=== PATIENT | male | born 1955 | race Caucasian/White ===

== ENCOUNTER 2019-10-06 10:38 | Emergency (ER) | payer OTHER ==
[~2019-10-06] VITALS: Ht 188 cm; Wt 102.1 kg
[~2019-10-06 10:38] MED LIST: ALLO300 PO; AMLO10 PO; ASPI325 PO; ASPI81CH PO; ASPI81EC PO; Aspir 8181 MG PO; CALCITRATE200 MG PO; CARV25 PO; CARV6.25 PO; CHLO25B PO; CLOBET30L TOP; CLON1 PO; CLON2 PO; CODACE30 PO; CYCL10 PO; DOXA4 PO; ERYT.5TO RIGHTEYE; ESZO3 PO; FERSU300 PO; FISH OIL 1,0001 EAC2 PO; FURO40 PO; GABA300 PO; HYDACE10B PO; HYDCHL25 PO; HYDMOR2 PO; Hydrocodone-Ap1 EA20 PO; IBUP800 PO; INDO25 PO; Keflex500 MG PO; LAMO100 PO; LAMO25 PO; LIDO5TO TOP; LIDO700A20 TOP; LISI20 PO; MAGNESIUM OXID500 MG PO; MELA3 PO; Miralax17 GM PO; NAPR250 PO; POTASSIUM PO; POTCHL20ER PO; PRAZ2 PO; PREG75 PO; PSYSENPA PO; PYRI100 PO; Percocet 5-3251 EACH PO; Prednisone20 MG PO; Prinivil10 MG PO; QUET300 PO; RXCYCL10 PO; RXHYDMOR2 PO; Ropinirole HCl1 MG PO; SILD50TA PO; SPIR25 PO; TAMS.4ER PO; TEMA30 PO; TRAM50 PO; TRAZ100 PO; Ultra Mide 25120 ML TOP; VITAMIN B-1100 MG PO; Vitamin D400 UNI2 PO
[2019-10-06 12:14] LABS: BASOPHILS ABSOLUTE AUTO 0.03 K/mm3 (0.00-0.23); BASOPHILS PERCENT AUTO 0 % (0-2); EOSINOPHILS ABSOLUTE AUTO 0.12 K/mm3 (0.00-0.68); EOSINOPHILS PERCENT AUTO 2 % (0-6); Hematocrit 44.1 % (37.0-53.0); Hemoglobin 14.6 g/dL (13.5-17.5); IMMATURE GRAN ABSOLUTE AUTO 0.01 K/mm3 (0.00-0.10); IMMATURE GRAN PERCENT AUTO 0 % (0-1); LYMPHOCYTES PERCENT AUTO 21 % (21-46); MONOCYTES ABSOLUTE AUTO 0.71 K/mm3 (0.16-1.47); MONOCYTES PERCENT AUTO 11 % (4-13); Mean Corpuscular HGB Conc 33.1 g/dL (31.5-36.5); Mean Corpuscular Volume 85 fL (80-100); NEUTROPHILS ABSOLUTE AUTO 4.41 K/mm3 (1.96-9.15); NEUTROPHILS PERCENT AUTO 66 % (41-73); Platelet Count 262 K/mm3 (150-400); RDW Coefficient Variation 12.6 % (11.7-14.2); RDW Standard Deviation 38.6 fL (35.1-46.3); Red Blood Cell Count 5.22 M/mm3 (4.30-5.90); White Blood Cell Count 6.68 K/mm3 (4.00-11.30)
[2019-10-06 12:32] LABS: Alanine Aminotransfer (ALT/SGP 28 U/L (12-78); Albumin, Blood 4.1 g/dL (3.4-5.0); Alk Phos 104 U/L (50-136); Anion Gap 5 mmol/L (6-16); Aspartate Aminotrans (AST/SGOT 17 U/L (12-37); Bilirubin, Total 0.5 mg/dL (0.1-1.0); Blood Urea Nitrogen 12 mg/dL (8-24); Bun/Creatinine Ratio 15.1 (12.0-20.0); CO2, Blood 28 mmol/L (21-32); Calcium, Blood 9.8 mg/dL (8.5-10.1); Chloride, Blood 110 mmol/L (98-108); Globulin, Blood 4.1 g/dL (2.2-4.0); Glomerular Filtration Rate >60 (60-); Glucose, Blood 99 mg/dL (70-99); Potassium, Blood 3.4 mmol/L (3.5-5.5); Sodium, Blood 143 mmol/L (136-145); Total Protein, Blood 8.2 g/dL (6.4-8.2)
[2019-10-06 12:38] LABS: Source, Urine Clean Catch
[2019-10-06 12:41] LABS: Bilirubin, Urine Neg (Neg); Blood, Urine 5+ (Neg); Glucose Qualitative, Urine Neg (Neg); Ketones, Urine Neg (Neg); Leukocyte Esterase, Urine 1+ (Neg); Nitrite, Urine Neg (Neg); Protein, Urine 2+ (Neg); Urobilinogen, Urine NORM (Normal)
[2019-10-06 12:55] LABS: Appearance, Urine Turbid (Clear); Bacteria Few /hpf; Color, Urine Brown (P-Yellow); Red Blood Cells, Urine TNTC /hpf (0-2); Squamous Epithelial Cells Not Seen /hpf (Few)
[2019-10-06] MEDS ORDERED: Bactrim Ds Tab1 EACH PO (14:08)
== END 2019-10-06 14:18 | disposition home or self-care (01) ==
LOC: ER 10:38
PROVIDERS: Emergency Medicine
DX: N39.0 Urinary tract infection, site not specified (principal); R31.0 Gross hematuria; I50.9 Heart failure, unspecified; Z87.891 Personal history of nicotine dependence; Z79.899 Other long term (current) drug therapy
CPT/HCPCS: 36415; 80053; 81001; 85025; 87086; 96374; 96375; 99283-25; J1100; J1170; J2405

== ENCOUNTER 2019-10-13 11:56 | Emergency (ER) | payer OTHER ==
[~2019-10-13] VITALS: Ht 188 cm; Wt 104.3 kg
[~2019-10-13 11:56] MED LIST changes: +Bactrim Ds Tab1 EACH PO
[2019-10-13 13:08] LABS: BASOPHILS ABSOLUTE AUTO 0.03 K/mm3 (0.00-0.23); BASOPHILS PERCENT AUTO 1 % (0-2); EOSINOPHILS ABSOLUTE AUTO 0.14 K/mm3 (0.00-0.68); EOSINOPHILS PERCENT AUTO 3 % (0-6); Hematocrit 39.9 % (37.0-53.0); Hemoglobin 13.1 g/dL (13.5-17.5); IMMATURE GRAN PERCENT AUTO 0 % (0-1); LYMPHOCYTES ABSOLUTE AUTO 1.93 K/mm3 (0.84-5.20); LYMPHOCYTES PERCENT AUTO 37 % (21-46); MONOCYTES ABSOLUTE AUTO 0.72 K/mm3 (0.16-1.47); MONOCYTES PERCENT AUTO 14 % (4-13); Mean Corpuscular HGB 27.8 pg (26.0-34.0); Mean Corpuscular HGB Conc 32.8 g/dL (31.5-36.5); Mean Corpuscular Volume 85 fL (80-100); Mean Platelet Volume 8.9 fL (9.1-12.4); NEUTROPHILS ABSOLUTE AUTO 2.45 K/mm3 (1.96-9.15); NEUTROPHILS PERCENT AUTO 46 % (41-73); Platelet Count 270 K/mm3 (150-400); RDW Coefficient Variation 13.1 % (11.7-14.2); RDW Standard Deviation 40.5 fL (35.1-46.3); Red Blood Cell Count 4.72 M/mm3 (4.30-5.90); White Blood Cell Count 5.27 K/mm3 (4.00-11.30)
[2019-10-13 13:31] LABS: Alanine Aminotransfer (ALT/SGP 24 U/L (12-78); Albumin, Blood 3.8 g/dL (3.4-5.0); Albumin/Globulin Ratio 1.2 (0.8-1.8); Alk Phos 87 U/L (50-136); Anion Gap 7 mmol/L (6-16); Aspartate Aminotrans (AST/SGOT 11 U/L (12-37); Bilirubin, Total 0.5 mg/dL (0.1-1.0); Blood Urea Nitrogen 18 mg/dL (8-24); Bun/Creatinine Ratio 17.5 (12.0-20.0); CO2, Blood 27 mmol/L (21-32); Calcium, Blood 9.2 mg/dL (8.5-10.1); Chloride, Blood 107 mmol/L (98-108); Creatinine, Blood 1.03 mg/dL (0.60-1.20); Globulin, Blood 3.3 g/dL (2.2-4.0); Glomerular Filtration Rate >60 (60-); Glucose, Blood 106 mg/dL (70-99); Potassium, Blood 3.4 mmol/L (3.5-5.5); Sodium, Blood 141 mmol/L (136-145); Total Protein, Blood 7.1 g/dL (6.4-8.2)
[2019-10-13] MEDS ORDERED: Percocet 5-3251 EACH PO (14:48)
[2019-10-13 16:29] LABS: Source, Urine Clean Catch
[2019-10-13 16:43] LABS: Bilirubin, Urine Neg (Neg); Blood, Urine 5+ (Neg); Glucose Qualitative, Urine Neg (Neg); Ketones, Urine Neg (Neg); Leukocyte Esterase, Urine Neg (Neg); Nitrite, Urine Neg (Neg); Protein, Urine Neg (Neg); Urobilinogen, Urine NORM (Normal)
[2019-10-13 16:53] LABS: Appearance, Urine Clear (Clear); Color, Urine Yellow (P-Yellow)
[2019-10-13 16:55] LABS: Hyaline Casts 0-2 /lpf (0-2); Red Blood Cells, Urine TNTC /hpf (0-2); White Blood Cells, Urine 0-2 /hpf (0-5)
[2019-10-13 16:56] LABS: Bacteria Few /hpf; Squamous Epithelial Cells Not Seen /hpf (Few)
== END 2019-10-13 16:49 | disposition home or self-care (01) ==
LOC: ER 11:56
PROVIDERS: Emergency Medicine
DX: N20.0 Calculus of kidney (principal); F31.9 Bipolar disorder, unspecified; I50.9 Heart failure, unspecified; J44.9 Chronic obstructive pulmonary disease, unspecified; I42.9 Cardiomyopathy, unspecified; Z86.73 Personal history of transient ischemic attack (TIA), and cerebral infarction without residual deficits; F43.10 Post-traumatic stress disorder, unspecified; Z88.8 Allergy status to other drugs, medicaments and biological substances; Z79.82 Long term (current) use of aspirin; Z79.899 Other long term (current) drug therapy; Z87.891 Personal history of nicotine dependence; Z87.442 Personal history of urinary calculi
CPT/HCPCS: 36415; 51702; 51798; 80053; 81001; 83690; 85025; 96361-59; 96374-59; 96375-59; 96376-59; 99284-25; J1170; J2405; J7030

== ENCOUNTER 2021-02-11 14:22 | Emergency (ER) | payer OTHER ==
[~2021-02-11] VITALS: Ht 185.4 cm; Wt 101.6 kg
[2021-02-11] MEDS ORDERED: PRED20 PO (15:28)
[2021-02-11] MEDS ORDERED: CELE200 PO (15:32)
== END 2021-02-11 15:50 | disposition home or self-care (01) ==
LOC: ER 14:22
DX: M25.552 Pain in left hip (principal); Z79.899 Other long term (current) drug therapy
CPT/HCPCS: 73502; 96372; 99283-25; A9270; J1100; J2270

== ENCOUNTER 2021-09-17 20:40 | Observation (INO) | payer OTHER ==
[~2021-09-17] VITALS: Ht 185.4 cm; Wt 105.7 kg
[~2021-09-17 20:40] MED LIST changes: +CELE200 PO; +PRED20 PO
[2021-09-17 21:37] LABS: BASOPHILS ABSOLUTE AUTO 0.03 K/mm3 (0.00-0.23); BASOPHILS PERCENT AUTO 1 % (0-2); EOSINOPHILS ABSOLUTE AUTO 0.21 K/mm3 (0.00-0.68); EOSINOPHILS PERCENT AUTO 4 % (0-6); Hematocrit 38.1 % (37.0-53.0); IMMATURE GRAN ABSOLUTE AUTO 0.01 K/mm3 (0.00-0.10); IMMATURE GRAN PERCENT AUTO 0 % (0-1); LYMPHOCYTES ABSOLUTE AUTO 1.79 K/mm3 (0.84-5.20); LYMPHOCYTES PERCENT AUTO 38 % (21-46); MONOCYTES ABSOLUTE AUTO 0.69 K/mm3 (0.16-1.47); MONOCYTES PERCENT AUTO 15 % (4-13); Mean Corpuscular HGB 32.2 pg (26.0-34.0); Mean Corpuscular HGB Conc 34.1 g/dL (31.5-36.5); Mean Corpuscular Volume 94 fL (80-100); Mean Platelet Volume 8.8 fL (9.1-12.4); NEUTROPHILS ABSOLUTE AUTO 1.99 K/mm3 (1.96-9.15); NEUTROPHILS PERCENT AUTO 42 % (41-73); Platelet Count 207 K/mm3 (150-400); RDW Coefficient Variation 12.2 % (11.7-14.2); RDW Standard Deviation 42.5 fL (35.1-46.3); Red Blood Cell Count 4.04 M/mm3 (4.30-5.90); White Blood Cell Count 4.72 K/mm3 (4.00-11.30)
[2021-09-17 21:43] LABS: Base Excess Venous 1.2 mmol/L; Bicarbonate Venous 24.8 mmol/L (24.0-30.0); PCO2 Venous 50.9 mmHg (38-42); PO2 Venous 97.7 mmHg (38-42); pH Blood Venous 7.33 (7.34-7.37)
[2021-09-17] MEDS ORDERED: DOXE75C PO (21:55)
[2021-09-17] MEDS ORDERED: FINA5 PO (21:56)
[2021-09-17 21:57] LABS: Magnesium, Blood 2.2 mg/dL (1.6-2.4); Salicylate <1.7 mg/dL (2.8-20.0)
[2021-09-17] MEDS ORDERED: BELSOMRA20 MG PO (21:57)
[2021-09-17] MEDS ORDERED: QUET300 PO (21:57)
[2021-09-17 21:58] LABS: Alanine Aminotransfer (ALT/SGP 29 U/L (12-78); Albumin, Blood 3.9 g/dL (3.4-5.0); Albumin/Globulin Ratio 1.2 (0.8-1.8); Alk Phos 79 U/L (50-136); Anion Gap 4 mmol/L (6-16); Aspartate Aminotrans (AST/SGOT 20 U/L (12-37); Bilirubin, Total 0.3 mg/dL (0.1-1.0); Blood Urea Nitrogen 22 mg/dL (8-24); Bun/Creatinine Ratio 25.4 (12.0-20.0); CO2, Blood 27 mmol/L (21-32); Calcium, Blood 8.8 mg/dL (8.5-10.1); Chloride, Blood 109 mmol/L (98-108); Creatinine, Blood 0.87 mg/dL (0.60-1.20); Globulin, Blood 3.3 g/dL (2.2-4.0); Glomerular Filtration Rate >60 (60-); Glucose, Blood 114 mg/dL (70-99); Potassium, Blood 3.6 mmol/L (3.5-5.5); Sodium, Blood 140 mmol/L (136-145); Total Protein, Blood 7.2 g/dL (6.4-8.2)
[2021-09-17 21:59] LABS: Acetaminophen, Random <2.0 ug/mL (10.0-30.0)
== END 2021-09-18 02:08 | disposition left against medical advice (07) ==
LOC: ER 20:40 → ERHOLD 20:41
PROVIDERS: Emergency Medicine; ADMIT Internal Medicine
DX: T43.011A Poisoning by tricyclic antidepressants, accidental (unintentional), initial encounter (principal); R40.0 Somnolence; J44.9 Chronic obstructive pulmonary disease, unspecified; I50.9 Heart failure, unspecified; I42.9 Cardiomyopathy, unspecified; F31.9 Bipolar disorder, unspecified; F43.10 Post-traumatic stress disorder, unspecified; N40.0 Benign prostatic hyperplasia without lower urinary tract symptoms; G62.9 Polyneuropathy, unspecified; M21.379 Foot drop, unspecified foot; Z86.73 Personal history of transient ischemic attack (TIA), and cerebral infarction without residual deficits; Z79.82 Long term (current) use of aspirin; Z87.891 Personal history of nicotine dependence; Z53.29 Procedure and treatment not carried out because of patient's decision for other reasons
CPT/HCPCS: 80053; 82803; 83735; 85025; 93005; 93010; 96374; 99285-25; A9270; G0378; G0480; J7070

== ENCOUNTER → 2021-11-06 | Outpatient (CLI) | payer OTHER ==
[~2021-11-06] MED LIST changes: +BELSOMRA20 MG PO; +DOXE75C PO; +FINA5 PO
[2021-11-07 16:59] LABS: U Amphetamine Screen Not Detected; U Barbituate Screen Not Detected; U Benzodiazapine Screen Not Detected; U Buprenorphine Screen Not Detected; U Cannabinoids Screen Not Detected; U Cocaine Screen Not Detected; U Methadone Screen Not Detected; U Methamphetamine Screen Not Detected; U Opiates Screen DETECTED; U Oxycodone Screen Not Detected; U Phencyclidine Screen Not Detected; U Propoxyphene Screen Not Detected
== END | disposition home or self-care (01) ==
LOC: LAB SHORT 12:50
PROVIDERS: Nurse Practitioner Family
DX: Z51.81 Encounter for therapeutic drug level monitoring (principal); Z79.891 Long term (current) use of opiate analgesic

== ENCOUNTER 2022-10-18 01:45 | Emergency (ER) | payer OTHER ==
[~2022-10-18] VITALS: Ht 182.9 cm; Wt 83.9 kg
== END 2022-10-18 04:11 | disposition home or self-care (01) ==
LOC: ER 01:45
DX: S61.211A Laceration without foreign body of left index finger without damage to nail, initial encounter (principal); W45.8XXA Other foreign body or object entering through skin, initial encounter; I50.9 Heart failure, unspecified; J44.9 Chronic obstructive pulmonary disease, unspecified; Z87.891 Personal history of nicotine dependence; Z23 Encounter for immunization; Z79.899 Other long term (current) drug therapy; Z79.82 Long term (current) use of aspirin
CPT/HCPCS: 73140; 90714

== ENCOUNTER → 2022-11-05 | Outpatient (CLI) | payer OTHER ==
[2022-11-05 20:17] LABS: U Opiates Screen DETECTED
[2022-11-05 20:18] LABS: U Amphetamine Screen Not Detected; U Barbituate Screen Not Detected; U Benzodiazapine Screen Not Detected; U Buprenorphine Screen Not Detected; U Cannabinoids Screen Not Detected; U Cocaine Screen Not Detected; U Methadone Screen Not Detected; U Methamphetamine Screen Not Detected; U Oxycodone Screen Not Detected; U Phencyclidine Screen Not Detected; U Propoxyphene Screen Not Detected
== END | disposition home or self-care (01) ==
LOC: LAB SHORT 16:00 → LAB 16:00
PROVIDERS: Physician Assistant
DX: Z51.81 Encounter for therapeutic drug level monitoring (principal); Z79.899 Other long term (current) drug therapy

== ENCOUNTER 2023-01-08 14:03 | Day surgery (SDC) | payer OTHER ==
[~2023-01-08] VITALS: Ht 185.4 cm; Wt 95.6 kg
[2023-01-08] MEDS ORDERED: OXYC5 (14:54)
[2023-01-08] MEDS ORDERED: MORP15ER (14:54)
[2023-01-08] MEDS ORDERED: OXYC10ER (14:56)
== END 2023-01-08 15:57 | disposition home or self-care (01) ==
LOC: ORSCSDS 14:03
PROVIDERS: Ophthalmology
PROC: 08RK3JZ Replacement of Left Lens with Synthetic Substitute, Percutaneous Approach (ICD-10-PCS; principal; 2023-01-08 15:30)
DX: H25.12 Age-related nuclear cataract, left eye (principal); H52.202 Unspecified astigmatism, left eye; I10 Essential (primary) hypertension; Z87.891 Personal history of nicotine dependence; F32.A Depression, unspecified; I42.9 Cardiomyopathy, unspecified; Z79.899 Other long term (current) drug therapy
CPT/HCPCS: J2001; J2250; J3010; J3301; J7040; V2632

== ENCOUNTER 2023-01-15 13:37 | Day surgery (SDC) | payer OTHER ==
[~2023-01-15] VITALS: Ht 185.4 cm; Wt 94.4 kg
[~2023-01-15 13:37] MED LIST changes: +MORP15ER; +OXYC10ER; +OXYC5
--- NOTE | 2023-01-15 15:44 | NUR ---
01/15/23 1544 [facility] MORA UNABLE TO TAKE PT OUT BY WC. SAT IN CHAIR AND BACK HURT SO MUCH THAT PT CRIED OUT IN PAIN. SBA TO CAR BY 2 RNS.
== END 2023-01-15 15:38 | disposition home or self-care (01) ==
LOC: ORSCSDS 13:37
PROVIDERS: Ophthalmology
PROC: 08RJ3JZ Replacement of Right Lens with Synthetic Substitute, Percutaneous Approach (ICD-10-PCS; principal; 2023-01-15 15:00)
DX: H25.11 Age-related nuclear cataract, right eye (principal); H52.201 Unspecified astigmatism, right eye; I10 Essential (primary) hypertension; J44.9 Chronic obstructive pulmonary disease, unspecified; Z87.891 Personal history of nicotine dependence; F32.9 Major depressive disorder, single episode, unspecified; G47.33 Obstructive sleep apnea (adult) (pediatric); Z79.899 Other long term (current) drug therapy
CPT/HCPCS: J2001; J2250; J3010; J3301; J7040; V2632

== ENCOUNTER 2025-06-04 12:35 | Emergency (ER) | payer OTHER ==
[~2025-06-04] VITALS: Ht 185.4 cm; Wt 79.8 kg
[~2025-06-04 12:35] MED LIST changes: +AMLO5 PO; +BUPRENORPHINE HC2 MG SL; +CALCIUM CITRAT250 MG PO; +Carvedilol12.5 MG PO; +FEROSUL325 M1 PO; +IPRAT-ALBUT 0.5-3 ML INH; +OMEGA-3 FISH O1 EA21 PO; +OMEP20ER PO; +QUET25 PO; +Vitamin D1000 UNI1 PO
[2025-06-04 13:17] LABS: BASOPHILS ABSOLUTE AUTO 0.04 K/mm3 (0.00-0.23); BASOPHILS PERCENT AUTO 1 % (0-2); EOSINOPHILS ABSOLUTE AUTO 0.23 K/mm3 (0.00-0.68); EOSINOPHILS PERCENT AUTO 4 % (0-6); Hematocrit 36.1 % (37.0-53.0); Hemoglobin 12.3 g/dL (13.5-17.5); IMMATURE GRAN ABSOLUTE AUTO 0.01 K/mm3 (0.00-0.10); IMMATURE GRAN PERCENT AUTO 0 % (0-1); LYMPHOCYTES ABSOLUTE AUTO 1.12 K/mm3 (0.84-5.20); LYMPHOCYTES PERCENT AUTO 18 % (21-46); MONOCYTES ABSOLUTE AUTO 1.25 K/mm3 (0.16-1.47); MONOCYTES PERCENT AUTO 20 % (4-13); Mean Corpuscular HGB Conc 34.1 g/dL (31.5-36.5); Mean Corpuscular Volume 92 fL (80-100); NEUTROPHILS ABSOLUTE AUTO 3.62 K/mm3 (1.96-9.15); NEUTROPHILS PERCENT AUTO 58 % (41-73); NRBC ABSOLUTE 0.00 K/mm3 (0.00-0.02); NRBC Auto 0.0 /100 WBC (0.0-0.2); Platelet Count 207 K/mm3 (150-400); RDW Coefficient Variation 12.5 % (11.7-14.2); RDW Standard Deviation 42.6 fL (35.1-46.3)
[2025-06-04 13:42] LABS: Alanine Aminotransfer (ALT/SGP 22.0 U/L (12-78); Albumin, Blood 3.6 g/dL (3.4-5.0); Albumin/Globulin Ratio 0.9 (0.8-1.8); Anion Gap 8.0 mmol/L (3-11); Aspartate Aminotrans (AST/SGOT 21.0 U/L (12-37); Bilirubin, Total 0.5 mg/dL (0.1-1.0); Blood Urea Nitrogen 21.0 mg/dL (8-24); CO2, Blood 28.0 mmol/L (21-32); Calcium, Blood 9.1 mg/dL (8.5-10.1); Chloride, Blood 103.0 mmol/L (98-108); Creatinine, Blood 0.59 mg/dL (0.60-1.20); Globulin, Blood 4.1 g/dL (2.2-4.0); Glucose, Blood 99.0 mg/dL (70-99); Potassium, Blood 3.3 mmol/L (3.5-5.5); Sodium, Blood 136.0 mmol/L (136-145); Total Protein, Blood 7.7 g/dL (6.4-8.2)
[2025-06-04 14:09] LABS: CORONAVIRUS COVID-19 AG Negative (NEGATIVE)
[2025-06-04] MEDS ORDERED: Potassium Chl 10MEQ/Water100ML 100 ML IV ONE (14:40)
[2025-06-04] MEDS ORDERED: NS 1,000 ML IV SCH (14:40)
[2025-06-04] MEDS ORDERED: Dextromethorphan Polistirix 30 MG/5 ML 5ML Oral Syringe PO ONE (15:25)
[2025-06-04 15:52] VITALS: BP 147/97
== END 2025-06-04 15:52 | disposition home or self-care (01) ==
LOC: ER 12:35
PROVIDERS: Student in an Organized Health Care Education/Training Program
DX: J06.9 Acute upper respiratory infection, unspecified (principal); D64.9 Anemia, unspecified; Z79.2 Long term (current) use of antibiotics; Z79.82 Long term (current) use of aspirin; Z79.899 Other long term (current) drug therapy; F43.10 Post-traumatic stress disorder, unspecified; I50.9 Heart failure, unspecified; J44.9 Chronic obstructive pulmonary disease, unspecified; F17.200 Nicotine dependence, unspecified, uncomplicated
CPT/HCPCS: 71045; 80053; 84484; 85025; 87428-QW; 93246; A9270; J3480; J7030

== ENCOUNTER 2025-08-17 08:52 | Day surgery (SDC) | payer OTHER ==
[~2025-08-17] VITALS: Ht 185.4 cm; Wt 91.6 kg
[2025-08-17] MEDS ORDERED: Benzocaine Oral Spray 0.5ML UD ONE (10:37)
[2025-08-17] MEDS ORDERED: Glycopyrrolate 0.2 MG/ML 1MLVIAL ONE (11:06)
[2025-08-17 12:48] VITALS: BP 144/72
== END 2025-08-17 12:25 | disposition home or self-care (01) ==
LOC: ORSCSDS 08:52
PROVIDERS: Internal Medicine Gastroenterology
PROC: 0DB58ZX Excision of Esophagus, Via Natural or Artificial Opening Endoscopic, Diagnostic (ICD-10-PCS; principal; 2025-08-17 10:30)
PROC: 0DJD8ZZ Inspection of Lower Intestinal Tract, Via Natural or Artificial Opening Endoscopic (ICD-10-PCS; principal; 2025-08-17 10:30)
DX: R13.10 Dysphagia, unspecified (principal); K21.00 Gastro-esophageal reflux disease with esophagitis, without bleeding; R63.4 Abnormal weight loss; Z12.11 Encounter for screening for malignant neoplasm of colon; K57.30 Diverticulosis of large intestine without perforation or abscess without bleeding; G47.33 Obstructive sleep apnea (adult) (pediatric); I10 Essential (primary) hypertension; F41.9 Anxiety disorder, unspecified; F32.A Depression, unspecified; N40.0 Benign prostatic hyperplasia without lower urinary tract symptoms; I25.2 Old myocardial infarction; Z79.82 Long term (current) use of aspirin; Z79.899 Other long term (current) drug therapy
CPT/HCPCS: 88305; A9270; J2704; J7120

== ENCOUNTER 2025-09-13 13:30 | Observation (INO) | payer OTHER ==
[~2025-09-13] VITALS: Ht 180.3 cm; Wt 70.3 kg
[2025-09-13 16:35] LABS: Source, Urine Clean Catch
[2025-09-13 16:37] LABS: BASOPHILS ABSOLUTE AUTO 0.04 K/mm3 (0.00-0.23); BASOPHILS PERCENT AUTO 1 % (0-2); EOSINOPHILS ABSOLUTE AUTO 0.07 K/mm3 (0.00-0.68); EOSINOPHILS PERCENT AUTO 1 % (0-6); Hematocrit 38.2 % (37.0-53.0); Hemoglobin 13.2 g/dL (13.5-17.5); IMMATURE GRAN ABSOLUTE AUTO 0.01 K/mm3 (0.00-0.10); IMMATURE GRAN PERCENT AUTO 0 % (0-1); LYMPHOCYTES ABSOLUTE AUTO 1.64 K/mm3 (0.84-5.20); LYMPHOCYTES PERCENT AUTO 26 % (21-46); MONOCYTES ABSOLUTE AUTO 0.85 K/mm3 (0.16-1.47); MONOCYTES PERCENT AUTO 14 % (4-13); Mean Corpuscular HGB Conc 34.6 g/dL (31.5-36.5); Mean Corpuscular Volume 91 fL (80-100); NEUTROPHILS ABSOLUTE AUTO 3.66 K/mm3 (1.96-9.15); NEUTROPHILS PERCENT AUTO 58 % (41-73); NRBC ABSOLUTE 0.00 K/mm3 (0.00-0.02); NRBC Auto 0.0 /100 WBC (0.0-0.2); Platelet Count 268 K/mm3 (150-400); RDW Coefficient Variation 11.9 % (11.7-14.2); RDW Standard Deviation 39.4 fL (35.1-46.3)
[2025-09-13 17:00] LABS: Bilirubin, Urine Neg (Neg); Glucose Qualitative, Urine Neg (Neg); Ketones, Urine Neg (Neg); Leukocyte Esterase, Urine Neg (Neg); Protein, Urine Neg (Neg); Specific Gravity, Urine 1.010 (1.003-1.022); Urobilinogen, Urine NORM (Normal)
[2025-09-13 17:19] LABS: Color, Urine Pale Yellow (P-Yellow)
[2025-09-13 17:29] LABS: Alanine Aminotransfer (ALT/SGP 25.0 U/L (12-78); Albumin, Blood 4.3 g/dL (3.4-5.0); Albumin/Globulin Ratio 1.1 (0.8-1.8); Anion Gap 8.0 mmol/L (3-11); Aspartate Aminotrans (AST/SGOT 16.0 U/L (12-37); Bilirubin, Total 0.5 mg/dL (0.1-1.0); Blood Urea Nitrogen 15.0 mg/dL (8-24); CO2, Blood 27.0 mmol/L (21-32); Calcium, Blood 9.8 mg/dL (8.5-10.1); Chloride, Blood 102.0 mmol/L (98-108); Creatinine, Blood 0.74 mg/dL (0.60-1.20); Globulin, Blood 4.0 g/dL (2.2-4.0); Glucose, Blood 143.0 mg/dL (70-99); Potassium, Blood 3.4 mmol/L (3.5-5.5); Sodium, Blood 134.0 mmol/L (136-145); Total Protein, Blood 8.3 g/dL (6.4-8.2)
[2025-09-13] MEDS ORDERED: FLU VACC TS2025(65UP)/MF59C/PF 45 MCG/0.5 ML SYRINGE IM SCH (18:15)
[2025-09-13] MEDS ORDERED: Robaxin750 MG PO (20:52)
[2025-09-13 20:58] VITALS: BP 167/102
[2025-09-13] MEDS ORDERED: QUET200 PO (21:07)
[2025-09-13] MEDS ORDERED: DOCU100 PO (21:09)
[2025-09-13] MEDS ORDERED: ALBU90OI INH (21:11)
[2025-09-13] MEDS ORDERED: OMEP20ER PO (21:12)
[2025-09-13] MEDS ORDERED: MELATONIN5 M1 PO (21:13)
[2025-09-13] MEDS ORDERED: POTA10T PO (21:15)
[2025-09-13] MEDS ORDERED: CHLO25B PO (21:17)
--- NOTE | 2025-09-13 23:30 | NUR ---
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 PATIENT WAS BROUGHT TO THE FLOOR VIA WHEEL CHAIR. ALERT AND ORIENTED X4. ABLE TO MAKE NEEDS KNOWN. PATIENT UNABLE TO MOVE RIGHT SIDE OF BODY AND COMPLAINING OF PROGRESSIVE NUMBNESS TO RIGHT LOWER EXTREMITY. PATIENT ORIENTED TO ROOM AND CALL LIGHT.
[2025-09-13 23:44] VITALS: BP 148/88
--- NOTE | 2025-09-14 04:45 | NUR ---
SHIFT SUMMARY PATIENT ADMITTED TO THE FLOOR THIS SHIFT FOR FLACCID PARALYSIS EFFECTING THE RIGHT SIDE OF THE BODY. VSS. PATIENT COMPLAINING OF INCREASED NUMBNESS AND TINGLING TO RIGHT FOOT. PATIENT STATES HE HAS PTSD AND INSOMNIA AND COMPLAINED OF NOT SLEEPING WELL THROUGHOUT THE NIGHT, PATIENT MEDICATED PER EMAR. ONE PERSON TRANSFER DUE TO NUMBNESS IN RIGHT FOOT AND WEAKNESS. BED RAILS UP X2. BED IN LOWEST POSITION FOR SAFETY. CALL LIGHT WITHIN REACH.
[2025-09-14 05:26] VITALS: BP 137/85
[2025-09-14 05:29] LABS: BASOPHILS ABSOLUTE AUTO 0.03 K/mm3 (0.00-0.23); BASOPHILS PERCENT AUTO 0 % (0-2); EOSINOPHILS ABSOLUTE AUTO 0.12 K/mm3 (0.00-0.68); EOSINOPHILS PERCENT AUTO 1 % (0-6); Hematocrit 35.0 % (37.0-53.0); Hemoglobin 12.3 g/dL (13.5-17.5); IMMATURE GRAN ABSOLUTE AUTO 0.01 K/mm3 (0.00-0.10); IMMATURE GRAN PERCENT AUTO 0 % (0-1); LYMPHOCYTES ABSOLUTE AUTO 2.66 K/mm3 (0.84-5.20); LYMPHOCYTES PERCENT AUTO 32 % (21-46); MONOCYTES ABSOLUTE AUTO 1.24 K/mm3 (0.16-1.47); MONOCYTES PERCENT AUTO 15 % (4-13); Mean Corpuscular HGB Conc 35.1 g/dL (31.5-36.5); Mean Corpuscular Volume 90 fL (80-100); NEUTROPHILS ABSOLUTE AUTO 4.24 K/mm3 (1.96-9.15); NEUTROPHILS PERCENT AUTO 51 % (41-73); NRBC ABSOLUTE 0.00 K/mm3 (0.00-0.02); NRBC Auto 0.0 /100 WBC (0.0-0.2); Platelet Count 242 K/mm3 (150-400); RDW Coefficient Variation 12.0 % (11.7-14.2); RDW Standard Deviation 39.1 fL (35.1-46.3)
[2025-09-14 06:11] LABS: Anion Gap 5.0 mmol/L (3-11); Blood Urea Nitrogen 23.0 mg/dL (8-24); CO2, Blood 30.0 mmol/L (21-32); Calcium, Blood 9.4 mg/dL (8.5-10.1); Chloride, Blood 104.0 mmol/L (98-108); Creatinine, Blood 0.77 mg/dL (0.60-1.20); Glucose, Blood 103.0 mg/dL (70-99); Potassium, Blood 2.9 mmol/L (3.5-5.5); Sodium, Blood 136.0 mmol/L (136-145)
[2025-09-14] MEDS ORDERED: Potassium Chl 20MEQ/Water100ML 100 ML IV STA (07:23)
[2025-09-14 07:47] VITALS: BP 146/97
[2025-09-14] MEDS ORDERED: NS 500 ML IV ONE (08:43)
[2025-09-14] MEDS ORDERED: Enoxaparin 40 MG/0.4 ML SYR SC SCH (09:00)
[2025-09-14] MEDS ORDERED: Potassium Chloride 10 Meq Tablet SA PO SCH (09:00)
[2025-09-14] MEDS ORDERED: NS 250 ML IV PRN (09:25)
[2025-09-14 11:04] VITALS: BP 164/102
[2025-09-14 16:20] VITALS: BP 164/114
--- NOTE | 2025-09-14 18:01 | NUR ---
NIGHT SLEEPING MEDS- PATIENT IS REQUESTING SEROQUEL BE WRITTEN 800MG AND TRAZODONE SLIDING SCALE 150-600MG HE NEEDS. THE PATIENT HAS ALREADY DISCUSSED THIS WITH DR. TRAMMELL ON ROUNDING. CALL TO DR. TRAMMELL WHO DIDM'T ANSWER. I WILL GIVE NOTE TO ONCOMING NURSE.
--- NOTE | 2025-09-14 18:46 | NUR ---
SHIFT SUMMARY- WAITING ON REVIEW OF CT FOR NEXT STEPS OF CARE. PT IS ANXIOUS AND TEARFUL ABOUT NIGHT MEDS AND POTENTIALLY NOT SLEEPING. DR. TRAMMELL ALREADY REVIEWED MEDS WITH PT AND MADE SOME CHANGES BUT NOT TO THE PTS SATISFACTION. SEE PREVIOUS NOTE.
[2025-09-14 20:37] VITALS: BP 167/105
--- NOTE | 2025-09-15 00:07 | NUR ---
MIDNIGHT VITALS NOT DONE. PT PREVIOUSLY STATED THAT HE HAS NIGHT TERROR AND NIGHTMARES AND CAN WAKE UP CONFUSED AND COMBATIVE. WHEN WALL TO WALL CARPET INSTALLER TRIED TO WAKE PT FOR VITALS, HE WOULD NOT AROUSE SO VITALS WERE NOT TAKEN FOR STAFF SAFETY.
[2025-09-15 03:43] VITALS: BP 138/89
--- NOTE | 2025-09-15 04:48 | NUR ---
SHIFT SUMMARY 70 YR M ADMITTED ON 09/13/25. FULL CODE. PT NIGHT MEDS WERE CHANGES PER HIS REQUEST. SEROQUEL 800 MG, AND TRAZODONE 150-300 MG. PT WAS PLEASED WITH THIS BUT GOT VERY UPSET THAT HE WOULD NOT BE PERMITTED TO TAKE ALL OF HIS PERSONAL HOME MEDS IN ADDITION TO HOSPITAL PROVIDED MEDICATIONS. HE STATED TO THIS NURSE AND CHARGE NURSE, TRICIA STRAUSS, THAT HIS LIFE WAS BEING PUT IN JEOPARDY. SEVERAL OF HIS HOME MEDS WERE DUPLICATES OF HOSPITAL MEDS AND IT WAS EXPALINED THAT HE WOULD NOT BE PERMITTED TO DOUBLE. PT WAS VERY ARGUMENTATIVE ABOUT THIS AND STATED THAT IF HE COULD NOT TAKE HIS HOME MEDS WELL THEN HE WANTED TO BE DISCHARGED. HOSPITALIST DECLINED DISCHARGE AND PT STATED THAT HE DID NOT WANT TO LEAVE AMA BUT THAT HE WOULD IF HE DID NOT GET TO TAKE ALL THE MEDS HE WANTED TO. PLEASE NOTE THAT THERE WERE A HANDFUL OF MEDS THAT HE WANTED TO TAKE AND NONE OF THEM WERE IN MARKED BOTTLES, BUT RATHER FROM HIS PERSONAL PILL ORGANIZER. THIS NURSE MADE IT VERY CLEAR THAT SHE WOULD NOT GIVE HOSPITAL MEDS IN ADDITION TO HOME MEDS AND PT WAS EDUCATED ON THE DANGERS OF DOING THIS. CHARGE NURSE ALSO EXPLAINED TO PT THAT THIS WOULD BE AGAINST HOSPITAL POLICY. PT THEN STATED THAT WE WOULD TAKE THE HOSPITAL MEDS AND THEN LEAVE AFTERWARD. THIS NURSE REFUSED TO GIVE MEDS IF THE PT WAS GOING TO LEAVE, KNOWING HE WOULD DOUBLE DOSE WITH HIS OWN MEDS. PT ULTIMATELY AGREED TO STAY THE NIGHT AND MEDS WERE GIVEN. PT FELL ASLEEP AND SLEPT THROUGH MOST OF THE NIGHT. PT WAS ALSO UPSET THAT A DOCTOR WOULD NOT COME TO HIS BEDSIDE WITH RESULTS OF HIS MRI. HE WAS TOLD THAT SOMEONE WOULD BE HERE IN THE MORNING TO DISCUSS THE RESULTS WITH HIM. BED IN IN LOW POSITION WITH CALL LIGHT IN REACH.
[2025-09-15 05:50] LABS: BASOPHILS ABSOLUTE AUTO 0.04 K/mm3 (0.00-0.23); BASOPHILS PERCENT AUTO 1 % (0-2); EOSINOPHILS ABSOLUTE AUTO 0.14 K/mm3 (0.00-0.68); EOSINOPHILS PERCENT AUTO 2 % (0-6); Hematocrit 37.2 % (37.0-53.0); Hemoglobin 12.9 g/dL (13.5-17.5); IMMATURE GRAN ABSOLUTE AUTO 0.02 K/mm3 (0.00-0.10); IMMATURE GRAN PERCENT AUTO 0 % (0-1); LYMPHOCYTES ABSOLUTE AUTO 2.46 K/mm3 (0.84-5.20); LYMPHOCYTES PERCENT AUTO 30 % (21-46); MONOCYTES ABSOLUTE AUTO 1.30 K/mm3 (0.16-1.47); MONOCYTES PERCENT AUTO 16 % (4-13); Mean Corpuscular HGB Conc 34.7 g/dL (31.5-36.5); Mean Corpuscular Volume 92 fL (80-100); NEUTROPHILS ABSOLUTE AUTO 4.25 K/mm3 (1.96-9.15); NEUTROPHILS PERCENT AUTO 52 % (41-73); NRBC ABSOLUTE 0.00 K/mm3 (0.00-0.02); NRBC Auto 0.0 /100 WBC (0.0-0.2); Platelet Count 234 K/mm3 (150-400); RDW Coefficient Variation 12.2 % (11.7-14.2); RDW Standard Deviation 41.6 fL (35.1-46.3)
[2025-09-15 06:33] LABS: Anion Gap 9.0 mmol/L (3-11); Blood Urea Nitrogen 26.0 mg/dL (8-24); CO2, Blood 27.0 mmol/L (21-32); Calcium, Blood 9.3 mg/dL (8.5-10.1); Chloride, Blood 104.0 mmol/L (98-108); Creatinine, Blood 0.89 mg/dL (0.60-1.20); Glucose, Blood 108.0 mg/dL (70-99); Potassium, Blood 3.1 mmol/L (3.5-5.5); Sodium, Blood 137.0 mmol/L (136-145)
[2025-09-15 07:30] VITALS: BP 138/87
--- NOTE | 2025-09-15 15:48 | NUR ---
DISCHARGE DISCHARGED HOME IN THE CARE OF HIS . IV REMOVED. DISCHARGE PLAN REVIEWED AND QUESTIONS ANSWERED.
== END 2025-09-15 11:32 | disposition home or self-care (01) ==
LOC: ER 13:30 → MEDS 13:31
PROVIDERS: Student in an Organized Health Care Education/Training Program; ADMIT Student in an Organized Health Care Education/Training Program
DX: G81.01 Flaccid hemiplegia affecting right dominant side (principal); E87.6 Hypokalemia; J44.9 Chronic obstructive pulmonary disease, unspecified; I11.0 Hypertensive heart disease with heart failure; I50.9 Heart failure, unspecified; M48.02 Spinal stenosis, cervical region; G40.909 Epilepsy, unspecified, not intractable, without status epilepticus; F31.9 Bipolar disorder, unspecified; N40.0 Benign prostatic hyperplasia without lower urinary tract symptoms; F51.04 Psychophysiologic insomnia; F43.10 Post-traumatic stress disorder, unspecified; Z88.0 Allergy status to penicillin; Z88.8 Allergy status to other drugs, medicaments and biological substances; Z79.82 Long term (current) use of aspirin; Z79.899 Other long term (current) drug therapy; Z87.891 Personal history of nicotine dependence; Z86.73 Personal history of transient ischemic attack (TIA), and cerebral infarction without residual deficits
CPT/HCPCS: 36415; 70450; 70551; 72141; 80048; 80053; 81003; 83880; 84484; 85025; 93005; 93010; 96365; 96366; 96372; 97112; 97162; 97165; 99285-25; A9270; G0378; J1650; J3480; J7040